=== PATIENT | female | born 1945 | race Caucasian/White ===

== ENCOUNTER → 2016-11-07 | Outpatient (CLI) | payer MEDICARE ==
[~2016-11-07] MED LIST: ALENDRONATE SOD70 MG PO; ASPIR 8181 MG PO; ATORVASTATIN CA10 MG PO; CALCIUM 600 +1 EAC1 PO; COQ-1030 MG PO; COUMADIN7.5 MG PO; COZAAR50 MG PO; ESTROVEN ENERG1 EACH PO; FLAX OIL1000 MG PO; GLUCOPHAGE XR500 MG PO; GLUCOTROL XL5 MG PO; ONE DAILY FOR1 EAC3 PO; PRILOSEC20 MG PO; SOTALOL80 MG PO; ZANTAC300 MG PO; herbal PO
== END | disposition short-term general hospital (02) ==
LOC: CLCARD 11:27
DX: I48.0 Paroxysmal atrial fibrillation (principal); R00.2 Palpitations; I10 Essential (primary) hypertension; E78.5 Hyperlipidemia, unspecified; E11.9 Type 2 diabetes mellitus without complications; Z79.01 Long term (current) use of anticoagulants; Z79.899 Other long term (current) drug therapy; R94.31 Abnormal electrocardiogram [ECG] [EKG]